=== PATIENT | female | born 1965 | race Asian ===

== ENCOUNTER 2020-12-21 18:05 | Emergency (ER) | payer BC ==
--- NOTE | 2020-12-21 18:39 | EDM.PDOC ---
ED HPI GENERAL MEDICAL PROBLEM - General Chief Complaint: Eye Problems Stated Complaint: EYE PAIN Time Seen by Provider: 12/21/20 18:10 Source of Information: Reports: Patient History Limitations: Reports: No Limitations - History of Present Illness INITIAL COMMENTS - FREE TEXT/NARRATIVE: 55 yo lady with h/o tear duct plug placement 2 or months ago began to have pain in the right eye yesterday and noticed that the plug was visible. She called her [employer] and the office was closed. She came to the ED today for evaluation and treatment. She has no other complaints Right Eye Pain Score (Numeric/FACES): 4 - Related Data Allergies Allergy/AdvReac Type Severity Reaction Status Date / Time No Known Allergies Allergy Verified 12/21/20 18:49 Home Meds: Home Meds NK [No Known Home Meds] 12/21/20 [History] ED ROS GENERAL - Review of Systems Review Of Systems: See Below Constitutional: Reports: No Symptoms HEENT: Reports: Eye Discharge, Eye Pain Respiratory: Reports: No Symptoms Cardiovascular: Reports: No Symptoms Endocrine: Reports: No Symptoms GI/Abdominal: Reports: No Symptoms : Reports: No Symptoms Musculoskeletal: Reports: No Symptoms Skin: Reports: No Symptoms Neurological: Reports: No Symptoms Psychiatric: Reports: No Symptoms Hematologic/Lymphatic: Reports: No Symptoms Immunologic: Reports: No Symptoms ED EXAM GENERAL W FULL EYE - Physical Exam Exam: See Below Exam Limited By: No Limitations General Appearance: Alert, WD/WN, No Apparent Distress Eye Exam: Bilateral Eye: EOMI, PERRL Conjunctiva & Sclera: Right: Discharge, Foreign Body, Other (erythemia ), Left: Normal Appearance Cornea Exam: Right: Other (erythemia ), Left: Normal Appearance Pupillary Reaction: Bilateral: Brisk Course - Vital Signs Last Recorded V/S: Last Vital Signs Temp 36.6 C 12/21/20 18:05 Pulse 89 12/21/20 18:05 Resp 18 12/21/20 18:05 BP 137/91 H 12/21/20 18:05 Pulse Ox 98 12/21/20 18:05 - Orders/Labs/Meds Orders: Active Orders 24 hr Category Date Time Status Dexameth/Neomycin/Polymyxin B [Maxitrol Ophth Susp] Med 12/21/20 19:00 Active 0 ml EYERT QID Medication Orders Neomycin/Polymyxin/Dexamethasone (Dexamethasone/Neomycin/Polymyxin B Ophth Susp 5 Ml Bottle) 0 ml EYERT QID [facility] Meds: Medications Generic Name Dose Route Start Last Admin Trade Name Gilma PRN Reason Stop Dose Admin Neomycin/Polymyxin/Dexamethasone 0 ml 12/21/20 19:00 Dexamethasone/Neomycin/Polymyxin B Ophth Susp 5 Ml Bottle EYERT QID ADIEL Departure - Departure Time of Disposition: 19:12 Disposition: Still A Patient 30 Clinical Impression: Conjunctivitis Qualifiers: Conjunctivitis type: acute Acute conjunctivitis type: unspecified Laterality: right Qualified Code(s): H10.31 - Unspecified acute conjunctivitis, right eye - Discharge Information *PRESCRIPTION DRUG MONITORING PROGRAM REVIEWED*: Not Applicable *COPY OF PRESCRIPTION DRUG MONITORING REPORT IN PATIENT AGUILAR: Not Applicable Instructions: Eye Foreign Body, [id number] Referrals: Berto Powell MD [Primary Care Provider] - Forms: ED Department Discharge Sepsis Event Note (ED) - Focused Exam Vital Signs: Vital Signs Temp Pulse Resp BP Pulse Ox 12/21/20 18:05 36.6 C 89 18 137/91 H 98 - My Orders Last 24 Hours: My Active Orders 12/21/20 19:00 Dexameth/Neomycin/Polymyxin B [Maxitrol Ophth Susp] 0 ml EYERT QID - Assessment/Plan Last 24 Hours: My Active Orders 12/21/20 19:00 Dexameth/Neomycin/Polymyxin B [Maxitrol Ophth Susp] 0 ml EYERT QID
[2020-12-21] MEDS ORDERED: Dexamethasone/Neomycin/Polymyxin B Ophth Susp 5 ML Bottle EYERT SCH (19:00)
--- NOTE | 2020-12-22 07:32 | ER ---
DATE SEEN: 12/21/2020 ADDENDUM: This patient was seen by Dr. Sotelo. It is my understanding that Dr. Pineda was consulted and advised Maxitrol drops, which were presented to the patient and she will be discharged home and follow up with Dr. Pineda on Wednesday. /[id number] SHABANA/ANDI
== END 2020-12-21 19:30 | disposition home or self-care (01) ==
LOC: FB.ED 18:05
DX: H10.31 Unspecified acute conjunctivitis, right eye (principal)
CPT/HCPCS: 99283; A9270-GY